=== PATIENT | female | born 1990 | race Caucasian/White ===

== ENCOUNTER 2021-11-10 09:04 | Day surgery (SDC) | payer OTHER ==
[2021-11-07 14:54] VITALS: BMI 25.2
[2021-11-10] MEDS ORDERED: MIDAZOLAM HCL 2 MG/2 ML SINGLE DOSE VIAL ONE (11:23)
[2021-11-10] MEDS ORDERED: BUPIVACAINE HCL/PF 0.5% (5MG/ML) 10 ML VIAL ONE (11:23)
[2021-11-10] MEDS ORDERED: BUPIVACAINE LIPOSOME/PF (EXPAREL) 266 MG/20 ML VIAL ONE (11:23)
[2021-11-10] MEDS ORDERED: VANCOMYCIN 1,000 MG VIAL (RESTRICTED TO ID ONLY) ONE (11:56)
[2021-11-10] MEDS ORDERED: LIDOCAINE HCL 2% JELLY 10 ML CARTRIDGE ONE (11:59)
[2021-11-10] MEDS ORDERED: ROCURONIUM BROMIDE 50 MG/5 ML SYRINGE ONE (11:59)
[2021-11-10] MEDS ORDERED: LIDOCAINE HCL/PF 2% SDV 5ML VIAL ONE (11:59)
[2021-11-10] MEDS ORDERED: PROPOFOL 40 ML ONE (11:59)
[2021-11-10] MEDS ORDERED: ONDANSETRON 4 MG/2 ML VIAL ONE ×2 (12:27→15:35)
[2021-11-10] MEDS ORDERED: KETOROLAC TROMETHAMINE 30 MG/1 ML VIAL ONE (12:27)
[2021-11-10] MEDS ORDERED: TRANEXAMIC ACID 1000 MG/10 ML VIAL ONE (12:27)
[2021-11-10] MEDS ORDERED: DEXAMETHASONE SOD PHOSPHATE 4 MG/1 ML VIAL ONE (12:27)
[2021-11-10] MEDS ORDERED: ceFAZolin SODIUM 1 GM VIAL ONE (12:27)
[2021-11-10] MEDS ORDERED: GUM MASTIC/STORAX/MSAL/ALCOHOL 1 DRP DROPSBTL MC ONE (15:07)
[2021-11-10] MEDS ORDERED: FENTANYL CITRATE/PF 50 MCG/ML VIAL ONE ×3 (15:22→15:50)
[2021-11-10] MEDS ORDERED: oxyCODONE HCL 5 MG TABLET PO PRN ×2 (15:28→16:03)
[2021-11-10] MEDS ORDERED: PROMETHAZINE HCL 25 MG/1 ML VIAL IVPUSH PRN (15:28)
[2021-11-10] MEDS ORDERED: ONDANSETRON 4 MG/2 ML VIAL IVPUSH PRN (15:28)
[2021-11-10] MEDS ORDERED: LACTATED RINGERS SOLUTION 1,000 ML IV SCH (15:30)
[2021-11-10] MEDS ORDERED: ACETAMINOPHEN 1000 MG/100 ML BAG IVPB ONE (16:03)
[2021-11-10 16:55] VITALS: RESP 16; TEMP 97.9
[2021-11-10 16:56] VITALS: BP 111/77; PULSE 84
== END 2021-11-10 17:31 | disposition home or self-care (01) ==
LOC: FASU 09:04
PROVIDERS: ATTEND Orthopaedic Surgery Sports Medicine
PROC: 0MRN47Z Replacement of Right Knee Bursa and Ligament with Autologous Tissue Substitute, Percutaneous Endoscopic Approach (ICD-10-PCS; principal; 2021-11-10 12:45)
DX: S83.511A Sprain of anterior cruciate ligament of right knee, initial encounter (principal); X58.XXXA Exposure to other specified factors, initial encounter; Y93.9 Activity, unspecified; Y92.9 Unspecified place or not applicable
CPT/HCPCS: 84703; 94760